=== PATIENT | male | born 1960 | race Caucasian/White ===

== ENCOUNTER 2018-11-09 08:26 | Day surgery (SDC) | payer BC ==
[2018-11-08 10:45] VITALS: BMI 42.7
--- NOTE | 2018-11-09 12:34 | OP ---
DATE OF PROCEDURE: 11/09/2018 PROCEDURE PERFORMED: Colonoscopy with polypectomy. INDICATION FOR PROCEDURE: Screening for malignant neoplasm of the colon (average risk). DESCRIPTION OF PROCEDURE: After the risks and benefits of the procedure were explained to the patient including risks of bleeding, infection, perforation, reactions to anesthesia, aspiration, and/or pain, informed consent was obtained. The patient was then taken to the endoscopy suite, where deep sedation was administered via propofol and anesthesia support. Once adequate sedation was achieved, a digital rectal examination was performed followed by introduction of the standard colonoscope, which was advanced to the terminal ileum without difficulty. The quality of the prep was excellent. The patient tolerated the procedure well with no immediate perioperative complication. Upon conclusion of the procedure, all equipment was removed from the patient, and he was transferred to Day Stay in satisfactory condition. FINDINGS: Digital rectal exam: Normal-appearing mucosa was seen on external examination. Colon findings: Normal-appearing mucosa was seen within the terminal ileum as well as at the ileocecal valve, appendiceal orifice, and within the cecum itself. Two polyps measuring 3 mm in size were seen in the proximal ascending colon and completely removed with cold snare polypectomy. They were retrieved and placed in a specimen jar for evaluation. Normal-appearing mucosa was then seen in the distal ascending colon, transverse colon, descending colon, and sigmoid colon. A single 2 mm diverticulum was seen within the sigmoid colon without any surrounding mucosal erythema or stricture formation. A 4 mm polyp was seen in the rectum and completely removed with snare cautery polypectomy. It was retrieved and placed in a specimen jar for evaluation. Normal-appearing mucosa was then seen on rectal retroflexion. IMPRESSION: 1. Two 3 mm ascending colon polyps, status post cold snare polypectomy. 2. 4 mm rectal polyp, status post snare cautery polypectomy. 3. Mild sigmoid diverticulosis. RECOMMENDATIONS: 1. We will follow up on the biopsy results with repeat colonoscopy interval depending on pathology report. 2. We would recommend a higher fiber diet given the presence of diverticulosis. 3. Continue current medications, but we would hold aspirin 325 mg for 48 hours post procedure. 4. Follow up in the GI clinic as needed. Job ID: [id number]
== END 2018-11-09 11:30 | disposition home or self-care (01) ==
LOC: SDC 08:26
PROVIDERS: ATTEND Internal Medicine
PROC: 0DBK8ZX Excision of Ascending Colon, Via Natural or Artificial Opening Endoscopic, Diagnostic (ICD-10-PCS; principal; 2018-11-09)
DX: Z12.11 Encounter for screening for malignant neoplasm of colon (principal); D12.2 Benign neoplasm of ascending colon; K62.1 Rectal polyp; K57.30 Diverticulosis of large intestine without perforation or abscess without bleeding; E78.5 Hyperlipidemia, unspecified; I10 Essential (primary) hypertension; G47.30 Sleep apnea, unspecified; Z79.82 Long term (current) use of aspirin; Z79.899 Other long term (current) drug therapy
CPT/HCPCS: 88305